=== PATIENT | female | born 1950 | race Caucasian/White ===

== ENCOUNTER 2019-11-01 20:51 | Emergency (ER) | payer MEDICARE, OTHER ==
[2019-11-01] MEDS ORDERED: ONDANSETRON ODT 4 MG TABLET TL STA (21:50)
[2019-11-01] MEDS ORDERED: ONDANSETRON ODT 4 MG Prepack 2 TL PRN (21:51)
--- NOTE | 2019-11-01 21:52 | ED Physician Documentation ---
PD HPI HEAD INJURY - Stated complaint Stated Complaint: FALL - HIT HEAD - Chief complaint Chief Complaint: Trauma Hd/Nk - History obtained from History obtained from: Patient, Family - History of Present Illness Mechanism of head injury: Fell Where head injury occurred: Home Timing - onset: Today Location of injury: Back Quality of pain: Pain Associated symptoms: Nausea / vomiting. No: LOC, AMS, Amnesia, Neck pain, Paresthesias, Seizures, Ear drainage, Nasal drainage Symptoms improve with: Rest Symptoms worsen with: Palpation, Movement Contributing factors: No: Anticoagulated Similar symptoms before: Has not had sx before Recently seen: Not recently seen - Additional information Additional information: 69-year-old female believes she was up on the fourth rung of a ladder pruning a tree when she fell backwards directly onto her back. She states that she got the wind knocked out of her and she laid on the ground for some period of time she eventually tried to get onto her hands and knees to get up and going to the house and when she did this she vomited. She has had some nausea persistent she had some transient dizziness and she has little bit of a headache. She did not have any loss of consciousness and she denies any difficulty concentrating. She is accompanied here today by her who confirms this. She did get the wind knocked out of her when this occurred but she denies any pain in her chest she denies any shortness of breath she denies any pain in her neck numbness or tingling to her extremities or weakness. She has not been ill recently. 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 Review of Systems Constitutional: denies: Fever Eyes: denies: Decreased vision, Photophobia Ears: denies: Ear pain Nose: denies: Rhinorrhea / runny nose, Congestion Throat: denies: Sore throat Cardiac: denies: Chest pain / pressure Respiratory: denies: Dyspnea, Cough GI: reports: Nausea, Vomiting. denies: Abdominal Pain, Constipation, Diarrhea : denies: Dysuria, Frequency Skin: denies: Rash PD PAST MEDICAL HISTORY - Past Medical History Past Medical History: Yes - Past Surgical History Past Surgical History: No - Present Medications Home Medications: Ambulatory Orders Medication Instructions Recorded Confirmed Ondansetron Odt [Zofran] 4 mg TL Q6H PRN #10 tablet 11/01/19 - Allergies Allergies/Adverse Reactions: Allergies Allergy/AdvReac Type Severity Reaction Status Date / Time codeine Allergy Emesis Verified 11/01/19 20:54 - Social History Does the pt smoke?: No Smoking Status: Never smoker Does the pt drink ETOH?: Yes Does the pt have substance abuse?: No - Immunizations Immunizations are current?: Yes - POLST Patient has POLST: No PD ED PE NORMAL - Vitals Vital signs reviewed: Yes (Hypertensive mild) - General General: Alert and oriented X 3, No acute distress, Well developed/nourished - HEENT HEENT: PERRL, EOMI, Other (I am unable to palpate an area of tenderness to the occiput. There is no abrasion or ecchymosis.) - Neck Neck: Supple, no meningeal sign, No bony TTP - Cardiac Cardiac: RRR, No murmur - Respiratory Respiratory: No respiratory distress, Clear bilaterally, Other (No chest wall tenderness.) - Abdomen Abdomen: Soft, Non tender - Back Back: No CVA TTP, No spinal TTP - Derm Derm: Normal color, Warm and dry, No rash - Extremities Extremities: No deformity, No edema, No calf tenderness / cord - Neuro Neuro: Alert and oriented X 3, magazine editor 2-12 intact, No motor deficit, No sensory deficit, Normal speech Eye Opening: Spontaneous Motor: Obeys Commands Verbal: Oriented GCS Score: 15 - Psych Psych: Normal mood, Normal affect Results - Vitals Vitals: Vital Signs - 24 hr 11/01/19 20:54 Temperature 36.6 C Heart Rate 63 Respiratory 16 Rate Blood Pressure 150/71 H O2 Saturation 98 Oxygen O2 Source Room air - Rads (name of study) CT head without Radiology: Prelim report reviewed (Impression: No acute intracranial abnormality. No skull fracture.), EMP read indepedently, See rad report PD MEDICAL DECISION MAKING - ED course Complexity details: reviewed results, re-evaluated patient, considered differential, d/w patient, d/w family ED course: 69-year-old female with a fall off a ladder has symptoms of a concussion with a headache and nausea and vomiting. Her symptoms are improving rapidly and her CT scan is without evidence of intracranial hemorrhage. She is given instructions on concussion and Zofran for the nausea. Departure - Departure Disposition: 01 Home, Self Care Clinical Impression: Concussion Qualifiers: Encounter type: initial encounter Loss of consciousness presence/duration: without LOC Qualified Code(s): S06.0X0A - Concussion without loss of consciousness, initial encounter Condition: Stable Instructions: ED Concussion Follow-Up: ANGELA STEPHENS MD [Primary Care Provider] - Prescriptions: Ondansetron Odt [Zofran] 4 mg TL Q6H PRN #10 tablet PRN Reason: Nausea / Vomiting
--- NOTE | 2019-11-01 22:05 | CT Report ---
PROCEDURE: HEAD WO INDICATIONS: fall head injury vomiting TECHNIQUE: Noncontrast 4.5 mm thick angled axial sections acquired from the foramen magnum to the vertex. For r adiation dose reduction, the following was used: automated exposure control, adjustment of mA and/or kV according to patient size. COMPARISON: None. FINDINGS: Image quality: Excellent. CSF spaces: Basal cisterns are patent. No extra-axial fluid collections. Ventricles are normal in size and shape. Brain: No midline shift. No intracranial masses or hemorrhage. [place]ado-white matter interface is norm al. Skull and face: Calvarium and visualized facial bones are intact, without suspicious lesions. Sinuses: Visualized sinuses and mastoids are clear. IMPRESSION: No acute intracranial abnormality. No skull fracture. Reviewed by: Bolivar Cardoso MD on 11/01/2019 10:04 PM PDT Approved by: Bolivar Cardoso MD on 11/01/2019 10:04 PM PDT Station ID: [id number]
[2019-11-01 22:26] VITALS: BP 159/87
== END 2019-11-01 22:26 | disposition home or self-care (01) ==
LOC: ED 20:51
DX: S06.0X0A Concussion without loss of consciousness, initial encounter (principal); W11.XXXA Fall on and from ladder, initial encounter; Y93.H2 Activity, gardening and landscaping; Y92.007 Garden or yard of unspecified non-institutional (private) residence as the place of occurrence of the external cause
CPT/HCPCS: 70450; 99284; Q0162